=== PATIENT | female | born 1970 | race Two or more races ===

== ENCOUNTER 2024-03-25 21:44 | Emergency (ER) | payer OTHER, SELFPAY ==
[2024-03-25 21:44] VITALS: BMI 32.9
[2024-03-25 21:50] VITALS: BP 153/85; PULSE 99; RESP 18; TEMP 36.6; O2SAT 97
--- NOTE | 2024-03-25 22:08 | XR_ITS ---
Examination: CT brain head without contrast. 2-D sagittal coronal reconstructions Date and time of exam:March 25, 2024 1057 hrs. Indications: Onset headache today Comparison: May 28, 2023 CTDI: vol (mGy):48.50 DLP: (mGycm):932 Technique: Multiple CT axial sections of the brain have been obtained, 5 mm slice thickness. Contrast has not been administered. 2-D sagittal, coronal reconstructions have been obtained Low dose protocols were performed. One or more of the following dose reduction techniques were used; automated exposure control, adjustment of the mA and/or KV according to patient size, use of iterative reconstruction technique. Findings: No significant ventricular enlargement. Intra-axial or extra-axial hemorrhage density is not seen. No mass effect or midline shift Basal cisterns are not remarkable. Fourth ventricle is midline. Cranial vault intact. Impression: Negative for acute hemorrhage, mass effect or midline shift Advise clinical correlation and follow-up accordingly
--- NOTE | 2024-03-25 22:09 | EDNOTE_ITS ---
<Statement entered by Magdalena Davis MD - 03/26/24 22:04> As co-signing physician, I was present and available for consult prn. I concur with the plan and care as documented by the midlevel provider. ED Headache RME/HPI General Chief Complaint: Headache Stated Complaint: HEADACHE Time Seen by Provider: 03/25/24 21:59 Source: patient Arrival date/time: 03/25/24 21:44 53-year-old female past medical history of diabetes and migraines presents emergency department complaining of headache that is been ongoing since today. Patient denies any fever, chills, dizziness, vision changes, nausea vomiting, or any other associated symptom. Mode of arrival: ambulatory Limitations: no limitations Related Data Home Medications ?Medication ?Instructions ?Recorded ?Confirmed metformin 1,000 mg tablet 1,000 mg PO BID #0 tabs 05/03/14 12/23/22 (Glucophage) gabapentin 800 mg tablet 800 mg PO BID 07/09/21 12/23/22 hydroxyzine HCl 50 mg tablet 50 mg PO QHSPRN PRN Anxiety 07/09/21 12/23/22 dulaglutide 1.5 mg/0.5 mL 1.5 mg subcut QWEEK 12/22/22 12/23/22 subcutaneous pen injector (Trulicity) fluoxetine 20 mg capsule 20 mg PO DAILY 12/22/22 12/23/22 insulin degludec 100 unit/mL 30 unit subcut DAILY 12/22/22 12/22/22 subcutaneous solution (Tresiba U-100 Insulin) lisinopril 5 mg tablet 5 mg PO TID 12/22/22 12/23/22 albuterol 90 mcg/actuation aerosol 90 mcg inhalation QID 12/23/22 12/23/22 inhaler cetirizine 10 mg capsule 10 mg PO QDAY 12/23/22 12/23/22 insulin degludec 200 unit/mL (3 30 unit subcut QWEEK 12/23/22 12/23/22 mL) subcutaneous pen (Tresiba FlexTouch U-200 insulin) Previous Rx's ?Medication ?Instructions ?Recorded acetaminophen 500 mg capsule 500 mg PO Q6H PRN pain #30 caps 03/25/24 ibuprofen 600 mg tablet 600 mg PO Q8H PRN pain #20 tabs 03/25/24 Allergies Allergy/AdvReac Type Severity Reaction Status Date / Time sumatriptan Allergy Verified 03/25/24 21:47 Review of Systems Review of Systems Systems Reviewed: All systems reviewed, normal except as documented Constitutional Constitutional: Reports system reviewed and no additional complaints, except as documented, Denies body ache(s), Denies chills, Denies fever(s) and Reports headache(s) Eyes Eyes: Reports system reviewed and no additional complaints, except as documented and Denies change in vision ENT Ears, Nose, Mouth, and Throat: Reports system reviewed and no additional complaints, except as documented, Denies disequilibrium, Denies dizziness, Reports headache(s), Denies sore throat and Denies vertigo Cardiovascular Cardiovascular: Reports system reviewed and no additional complaints, except as documented, Denies chest pain and Denies dyspnea Respiratory Respiratory: Reports system reviewed and no additional complaints, except as documented, Denies chest congestion, Denies cough and Denies dyspnea Gastrointestinal Gastrointestinal: Reports system reviewed and no additional complaints, except as documented, Denies abdominal pain, Denies nausea and Denies vomiting Musculoskeletal Musculoskeletal: Reports system reviewed and no additional complaints, except as documented, Denies abnormal gait and Denies arthralgias Integumentary/Breasts Skin/Breast: Reports system reviewed and no additional complaints, except as documented, Denies erythema, Denies rash and Denies wounds Neurologic Neurologic: Reports system reviewed and no additional complaints, except as documented, Denies abnormal gait, Denies disequilibrium, Denies dizziness, Reports headache(s) and Denies vertigo Past Medical History Past Medical History NEUROLOGIC: Positive Neurological Disorders and Peripheral Neuropathy (feet); Negative Cerebrovascular Accident, Transient Ischemic Attacks (TIA), Dementia, Alzheimer's Disease, Parkinson's Disease, Brain Tumor, Meningitis, Seizures, Epilepsy, Multiple Sclerosis, Cerebral Palsy, Amyotrophic Lateral Sclerosis (ALS/Andreia Gehrig's), Guillain-Reading Syndrome, Spina Bifida, Paralysis, Campos's Palsy, Subdural Hematoma, Migraine, Head Trauma, Spinal Cord Injury or Traumatic Brain Injury CARDIAC: Positive Cardiac Disorders and Angina; Negative Myocardial Infarction, Cardiac Arrhythmia, Atrial Fibrillation, Heart Murmur, Coronary Artery Disease, Atherosclerotic Heart Disease, Peripheral Vascular Disease, Hypercholesterolemia, Aneurysm, Congestive Heart Failure, Congenital Heart Disease, Valvular Heart Disease, Rheumatic Fever, Cardiomyopathy, Edema, Pericarditis, Cellulitis, Deep Vein Thrombosis, Hypertension, Hypotension or Varicose Veins RESPIRATORY: Negative Chronic Obstructive Pulmonary Disease (COPD), Asthma, Bronchitis, Emphysema, Pneumonia, Pulmonary Fibrosis, Cystic Fibrosis, Tuberculosis, Pulmonary Embolism, Pulmonary Edema or Sleep Apnea GASTROINTESTINAL: Positive Gastrointestinal Disorders (abdominal hernia); Negative Hepatitis, Cirrhosis, Pancreatitis, Celiac Disease, Gall Bladder Disease, Gastrointestinal Bleed, Esophageal Varices, Campa's Esophagus, Colitis, Ulcerative Colitis, Diverticulitis, Diverticulosis, Ulcer, Colorectal Cancer, Irritable Bowel, Crohn's Disease, Obstructive Bowel, Hiatal Hernia, Hemorrhoids, Gastroesophageal Reflux Disease or Obesity GENITOURINARY: Negative Genitourinary Disorders, Renal Disease, Kidney Stones, Polycystic Kidney Disease, Neurogenic Bladder, Inguinal Hernia or Dialysis REPRODUCTIVE: Positive Previous Pregnancies (); Negative Breast Cancer, Endometriosis, Pelvic Inflammatory Disease or Uterine Prolapse MUSCULOSKELETAL: Positive Musculoskeletal Disorders and Arthritis (lower back.); Negative Muscular Dystrophy, Myasthenia Gravis, Marfan's Syndrome, Bone Cancer, Rheumatoid Arthritis, Osteoporosis, Degenerative Disk Disease, Gout, Scoliosis, Carpal Tunnel Syndrome, Fibromyalgia, Fractures, Degenerative Joint Disease, Osteomyelitis or Poliovirus ENT: Negative Cataracts, Glaucoma, Blind, Retinal Detachment, Macular Degeneration, Ear Infection, Deafness, Head Trauma or Eye Prosthesis ENDOCRINE: Positive Endocrine Disorders and Diabetes Mellitus Type 2; Negative Diabetes Mellitus Type 1, Hypoglycemia, Era's Syndrome, Dejuan's Disease, Hyperthyroidism, Hypothyroidism, Parathyroid Disease, Pituitary Disease, Systemic Lupus Erythematosus, Syndrome of Inappropriate Antidiuretic Hormone (SIADH), Adrenal Disease or Graves' Disease HEMATOLOGIC: Negative Blood Disorders, Anemia, Leukemia, Hemophilia, Thalassemia, Sickle Cell Disease or Clotting Problems PSYCHO/SOCIAL: Positive Depression and Anxiety; Negative Psychiatric Problems, Schizophrenia, Recreational Drug Use, Bipolar Disorder, Behavior Problems, Self-Mutilation, Attention Deficit Disorder, Attention Deficit Hyperactivity Disorder, Depression, Post Traumatic Stress Disorder or Eating Disorder OTHER HISTORY: Positive Chicken Pox and Mumps; Negative Hospitalization, Autoimmune Disease, Down Syndrome, Autism, Developmental Delay, Shingles, Falls, Blood Transfusions, Blood Transfusion Reaction, Anesthesia Reactions, Organ Transplant, Chemotherapy, Radiation Therapy, Hyperbaric Therapy, MRSA, VRSA, Vancomycin-Resistant Enterococci, Human Immunodeficiency Virus (HIV), Measles, Rubella (Micronesian Measles), Pertussis, Clostridium Difficile, Cancer, Breast Cancer, Cervical Cancer, Colorectal Cancer, Lung Cancer or Ovarian Cancer Family History FAMILY HISTORY: Positive Family Respiratory Disorders (dad has copd, mom had rare lung disease.); Negative Family Psychiatric Problems, Family Cardiac Disorders, Family Gastrointestinal Problems, Family Cancer, Family Surgery or Family Anesthesia Reaction Surgical History SURGICAL: Positive Abdominal Surgery and Section; Negative Cardiac Surgery, Open Heart Surgery, Coronary Artery Bypass Graft, Valve Replacement, Vascular Surgery, Coronary Stent, Cardiac Catheterization, Pacemaker, Angiogram, Auto Implanted Cardiovert Defib, Carotid Endarterectomy, Endocrine Surgery, Thyroidectomy, Ear Surgery, Tympanostomy Tube, Eye Surgery, Nose Surgery, Oral Surgery, Tonsillectomy, Adenoidectomy, Cochlear Implant, Corneal Transplant, Throat Surgery, Tracheostomy, Gastric Bypass Surgery, Gastrostomy, Bowel Surgery, Nephrectomy, Transurethral Resection, Joint Replacement, Amputation, Open Reduction Internal Fixation, Arthroscopy, Neurologic Surgery, Brain Shunt, Mastectomy, Lumpectomy, Hysterectomy, Tubal Ligation or Organ Transplant Social History SMOKING STATUS: Never smoker ED Exam General Limitations: Present no limitations General appearance: Present alert and in no apparent distress Head Head exam: Present atraumatic Eye Eye exam: Present normal appearance, PERRL and EOMI ENT ENT exam: Present normal exam, normal oropharynx and mucous membranes moist Neck Neck exam: Present normal inspection, full ROM and trachea midline Chest Chest inspection: Present normal inspection and symmetric chest wall rise Respiratory Respiratory exam: Present normal lung sounds bilaterally Cardiovascular Cardiovascular exam: Present regular rate, normal rhythm and normal heart sounds Abdominal Exam Abdominal exam: Present soft and normal bowel sounds Extremities Exam Extremities exam: Present normal inspection and full ROM Back Exam Back exam: Present normal inspection and full ROM Neurological Exam Neurological exam: Present alert, oriented X3 and CN II-XII intact Psychiatric Psychiatric exam: Present normal affect and normal mood Skin Skin exam: Present warm, dry, intact and normal color Course Quality Measures none Orders Category Date Time Status CT head/brain wo con Stat Exams 03/25/24 22:08 Completed Acetaminophen Tab [Tylenol ES Tab] Med 03/25/24 22:06 Discontinued 1,000 mg PO X1 ONE DiphenhydrAMINE [Benadryl] Med 03/25/24 22:06 Discontinued 25 mg PO X1 ONE Ketorolac Inj [Toradol Inj] Med 03/25/24 22:06 Discontinued 30 mg IM X1 ONE Ketorolac Inj [Toradol Inj] Med 03/25/24 23:16 Discontinued 30 mg IM X1 ONE Metoclopramide [Reglan] Med 03/25/24 22:06 Discontinued 10 mg PO X1 ONE Vital Signs Vital signs: Vital Signs Temperature 98 F 03/25/24 21:50 Pulse Rate 99 03/25/24 21:50 Respiratory Rate 18 03/25/24 21:50 Blood Pressure 153/85 H 03/25/24 21:50 Pulse Oximetry (%) 97 03/25/24 21:50 Oxygen Delivery Method Room Air 03/25/24 21:50 97% room air within normal limits Headache MDM Narrative MDM Narrative:: 53-year-old female past medical history of diabetes and migraines presents emergency department complaining of headache that is been ongoing since today. Patient denies any fever, chills, dizziness, vision changes, nausea vomiting, or any other associated symptom. Patient appears nontoxic and is hemodynamically stable. Patient is GCS of 15 ambulating independently with steady gait. CT was unremarkable for any acute process. Patient reported improvement in symptoms after pain medication. Patient discharged and instructed to follow-up with primary care provider and return to emergency department for any worsening symptoms or as needed. Patient data External records reviewed:: [facility] previous records Clinical information provided by:: patient Social determinants that could affect healthcare access:: none Patient has the following chronic illnesses:: See chart How is presenting disease/condition affected by chronic disease/condition?: exacerbated by Evaluation data The following diagnostics were reviewed and interpreted by me:: radiology exam(s) Lab and/or radiology exams considered but not ordered:: Ordered Interpretation Summary: Interpreted by me Medications / Prescriptions Medications or Prescriptions considered but not ordered:: Ordered Medication administrations:: Medication Administration History Discontinued Medications Acetaminophen (Acetaminophen 500 Mg Tablet) 1,000 mg PO X1 ONE Stop: 03/25/24 22:07 Last Admin: 03/25/24 22:17 Dose: 1,000 mg Documented By: Diphenhydramine HCl (Diphenhydramine 25 Mg Capsule) 25 mg PO X1 ONE Stop: 03/25/24 22:07 Last Admin: 03/25/24 22:17 Dose: 25 mg Documented By: Ketorolac Tromethamine (Ketorolac Inj 60 Mg/2 Ml Vial) 30 mg IM X1 ONE Stop: 03/25/24 22:07 Last Admin: 03/25/24 22:23 Dose: Not Given Documented By: Non-Admin Reason: Cancelled by Provider Ketorolac Tromethamine (Ketorolac Inj 60 Mg/2 Ml Vial) 30 mg IM X1 ONE Stop: 03/25/24 23:17 Last Admin: 03/25/24 23:34 Dose: 30 mg Documented By: CVL Metoclopramide HCl (Metoclopramide 5 Mg Tablet) 10 mg PO X1 ONE Stop: 03/25/24 22:07 Last Admin: 03/25/24 22:17 Dose: 10 mg Documented By: Given Consultations Consultation(s) initiated? (list below): No Diagnosis Differential diagnosis headache: migraine, tension headache, subarachnoid hemorrhage, headache, meningitis and sinusitis Most likely diagnosis given after review of the tests above:: Headache Admission Indicated Admission indicated?: not indicated Admission Request Was there a request for admission?: No Disposition Plan Disposition Plan: Discharge Discharge Attestation Discharge Attestation: The patient and all family members were given an opportunity to ask questions and understood the discharge instructions. Discharge instructions specifically effects, indications for sooner follow up or return to the emergency department, and the expected course of current diagnosis. Patient condition: Stable Discharge Plan Plan Patient Disposition: HOME (Self Care) Disposition Comment: Stable Prescriptions/Referrals Prescriptions/Med Rec: New ibuprofen 600 mg tablet 600 mg PO Q8H PRN (Reason: pain) Qty: 20 0RF acetaminophen 500 mg capsule 500 mg PO Q6H PRN (Reason: pain) Qty: 30 0RF No Action metformin [Glucophage] 1,000 MG tablet 1,000 mg PO BID Qty: 0 Hold Instructions: Resume on 12/25/22. hydroxyzine HCl 50 mg Tablet 50 mg PO QHSPRN PRN (Reason: Anxiety) gabapentin 800 mg tablet 800 mg PO BID Patient Comments: TAKE ONE TABLET BY MOUTH THREE TIMES DAILY fluoxetine 20 mg Capsule 20 mg PO DAILY insulin degludec [Tresiba U-100 Insulin] 100 unit/mL Solution 30 unit SUBCUT DAILY Trulicity 1.5 mg/0.5 mL Pen Injector 1.5 mg SUBCUT QWEEK lisinopril 5 mg Tablet 5 mg PO TID albuterol 90 mcg/actuation Aerosol 90 mcg INHALATION QID cetirizine 10 mg Capsule 10 mg PO QDAY insulin degludec [Tresiba FlexTouch U-200] 200 unit/mL (3 mL) Insulin Pen 30 unit SUBCUT QWEEK Referrals: Wolfe,Magdalena, [facility] [Primary Care Provider] - In 1 week Problem List Clinical Impression: Headache Patient/Caregiver Discharge Instructions Discharge Activity: activity as tolerated Education Materials: Self-Care for Headaches Additional Instructions: Take medication as prescribed. Drink plenty of water and stay hydrated. Follow-up with primary care provider in 24 to 48 hours. Return to emergency department for any worsening symptoms or as needed. Print Language: Vincentian Stand Alone Forms: [facility] Award Info., Patient Portal Info Letter ROBBY/GUERLINE Supervising Physician ROBBY/GUERLINE Supervising Physician: Dr. Davis
[2024-03-25] MEDS: DiphenhydrAMINE 25 MG CAPSULE PO (22:17)
[2024-03-25] MEDS: METOCLOPRAMIDE 5 MG TABLET 10 MG PO (22:17)
[2024-03-25] MEDS: ACETAMINOPHEN 500 MG TABLET 1000 MG PO (22:17)
[2024-03-25] MEDS: KETOROLAC INJ 60 MG/2 ML VIAL 30 MG IM (23:34)
[2024-03-25 23:36] VITALS: RESP 18
== END 2024-03-25 23:37 | disposition home or self-care (01) ==
PROVIDERS: Emergency Provider Emergency Medicine; PCP Nurse Practitioner Family
DX: R51.9 Headache, unspecified (principal)
CPT/HCPCS: 70450; 96372; 99284; J1885; A9270

== ENCOUNTER 2024-09-24 15:00 | Emergency (ER) | payer OTHER, SELFPAY ==
--- NOTE | 2024-09-24 15:32 | XR_ITS ---
Examination: CT brain head without contrast. 2-D sagittal coronal reconstructions Date and time of exam:September 24, 2024 1816 hours INDICATIONS: Syncopal episode with dizziness and vomiting today CTDI: vol (mGy):48.5 DLP: (mGycm):1007 Technique: Multiple CT axial sections of the brain have been obtained, 5 mm slice thickness. Contrast has not been administered. 2-D sagittal, coronal reconstructions have been obtained Low dose protocols were performed. One or more of the following dose reduction techniques were used; automated exposure control, adjustment of the mA and/or KV according to patient size, use of iterative reconstruction technique. Findings: No significant ventricular enlargement. Intra-axial or extra-axial hemorrhage density is not seen. No mass effect or midline shift Basal cisterns are not remarkable. Fourth ventricle is midline. Cranial vault intact. Impression: Negative for acute hemorrhage, mass effect or midline shift If symptoms persist, consider brain MRI follow up stroke protocol
--- NOTE | 2024-09-24 15:32 | EKG_ITS ---
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
--- NOTE | 2024-09-24 15:34 | PD.EDADULT ---
ED General RME/HPI General Stated complaint: SYNCOPE Time Seen by Provider: 09/24/24 15:31 Source: patient Arrival date/time: 09/24/24 15:00 54-year-old female with a history of type 2 diabetes presents to the emergency room with a chief complaint of dizziness, lightheadedness, and [place] Mode of arrival: ambulatory Limitations: no limitations Related Data Home Medications ?Medication ?Instructions ?Recorded ?Confirmed metformin 1,000 mg tablet 1,000 mg PO BID #0 tabs 05/03/14 12/23/22 (Glucophage) Held on 12/23/22. Instructions: Resume on 12/25/22. gabapentin 800 mg tablet 800 mg PO BID 07/09/21 12/23/22 hydroxyzine HCl 50 mg tablet 50 mg PO QHSPRN PRN Anxiety 07/09/21 12/23/22 dulaglutide 1.5 mg/0.5 mL 1.5 mg subcut QWEEK 12/22/22 12/23/22 subcutaneous pen injector (Trulicity) fluoxetine 20 mg capsule 20 mg PO DAILY 12/22/22 12/23/22 insulin degludec 100 unit/mL 30 unit subcut DAILY 12/22/22 12/22/22 subcutaneous solution (Tresiba U-100 Insulin) lisinopril 5 mg tablet 5 mg PO TID 12/22/22 12/23/22 albuterol 90 mcg/actuation aerosol 90 mcg inhalation QID 12/23/22 12/23/22 inhaler cetirizine 10 mg capsule 10 mg PO QDAY 12/23/22 12/23/22 insulin degludec 200 unit/mL (3 30 unit subcut QWEEK 12/23/22 12/23/22 mL) subcutaneous pen (Tresiba FlexTouch U-200 insulin) Previous Rx's ?Medication ?Instructions ?Recorded acetaminophen 500 mg capsule 500 mg PO Q6H PRN pain #30 caps 03/25/24 ibuprofen 600 mg tablet 600 mg PO Q8H PRN pain #20 tabs 03/25/24 Allergies Allergy/AdvReac Type Severity Reaction Status Date / Time sumatriptan Allergy Verified 03/25/24 21:47 Review of Systems Review of Systems Systems Reviewed: All systems reviewed, normal except as documented Constitutional Constitutional: Reports system reviewed and no additional complaints, except as documented, Denies fatigue, Denies fever(s), Denies headache(s) and Reports weakness Eyes Eyes: Reports system reviewed and no additional complaints, except as documented, Denies blurry vision and Denies change in vision ENT Ears, Nose, Mouth, and Throat: Reports system reviewed and no additional complaints, except as documented, Denies otalgia, Denies headache(s), Denies nasal congestion, Denies throat swelling and Reports vertigo Cardiovascular Cardiovascular: Reports system reviewed and no additional complaints, except as documented, Denies chest pain, Denies dyspnea and Denies dyspnea on exertion Respiratory Respiratory: Reports system reviewed and no additional complaints, except as documented, Denies chest congestion, Denies cough, Denies dyspnea, Denies dyspnea on exertion and Denies wheezing Gastrointestinal Gastrointestinal: Reports system reviewed and no additional complaints, except as documented, Denies abdominal pain, Denies cramping, Denies nausea and Denies vomiting Genitourinary Genitourinary: Reports system reviewed and no additional complaints, except as documented Musculoskeletal Musculoskeletal: Reports system reviewed and no additional complaints, except as documented and Denies back pain Integumentary/Breasts Skin/Breast: Reports system reviewed and no additional complaints, except as documented and Denies wounds Neurologic Neurologic: Reports system reviewed and no additional complaints, except as documented, Denies confusion, Denies headache(s), Reports lack of coordination, Reports vertigo and Reports weakness Psychiatric Psychiatric: Reports system reviewed and no additional complaints, except as documented, Denies anxiety, Denies confusion, Denies depression, Denies paranoia, Denies suicidal ideation and Denies tactile hallucinations Endocrine Endocrine: Reports system reviewed and no additional complaints, except as documented and Denies fatigue Hematologic/Lymphatic Hematologic/Lymphatic: Reports system reviewed and no additional complaints, except as documented and Denies lymphadenopathy Allergic/Immunologic Allergic/Immunologic: Reports system reviewed and no additional complaints, except as documented, Denies throat swelling, Denies urticaria and Denies wheezing ED Exam General Limitations: Present no limitations Course Orders Category Date Time Status EKG (ED ONLY) *Do not use* NOW Care 09/24/24 15:[address] head/brain wo con Stat Exams 09/24/24 15:32 Ordered EKG (ED Only) Stat Exams 09/24/24 15:32 Ordered B-Type Natriuretic Peptide Stat Lab 09/24/24 15:32 Ordered CBC Stat Lab 09/24/24 15:32 Ordered Comprehensive Metabolic Panel Stat Lab 09/24/24 15:32 Ordered Drug Screen,Urine Stat Lab 09/24/24 15:32 Ordered Magnesium Stat Lab 09/24/24 15:32 Ordered Partial Thromboplastin Time Stat Lab 09/24/24 15:32 Ordered Prothrombin Time with INR Stat Lab 09/24/24 15:32 Ordered Troponin I Stat Lab 09/24/24 15:32 Ordered Urinalysis Stat Lab 09/24/24 15:32 Ordered Meclizine HCl [Antivert] Med 09/24/24 15:32 Once 50 mg PO X1 ONE Sodium Chloride 0.9% 1000 ml [Ns] 1,000 ml Med 09/24/24 15:33 Ordered IV 999 mls/hr Discharge Plan Prescriptions/Referrals Prescriptions/Med Rec: No Action metformin [Glucophage] 1,000 MG tablet 1,000 mg PO BID Qty: 0 hydroxyzine HCl 50 mg Tablet 50 mg PO QHSPRN PRN (Reason: Anxiety) gabapentin 800 mg tablet 800 mg PO BID Patient Comments: TAKE ONE TABLET BY MOUTH THREE TIMES DAILY ibuprofen 600 mg tablet 600 mg PO Q8H PRN (Reason: pain) Qty: 20 0RF acetaminophen 500 mg capsule 500 mg PO Q6H PRN (Reason: pain) Qty: 30 0RF fluoxetine 20 mg Capsule 20 mg PO DAILY insulin degludec [Tresiba U-100 Insulin] 100 unit/mL Solution 30 unit SUBCUT DAILY Trulicity 1.5 mg/0.5 mL Pen Injector 1.5 mg SUBCUT QWEEK lisinopril 5 mg Tablet 5 mg PO TID albuterol 90 mcg/actuation Aerosol 90 mcg INHALATION QID cetirizine 10 mg Capsule 10 mg PO QDAY insulin degludec [Tresiba FlexTouch U-200] 200 unit/mL (3 mL) Insulin Pen 30 unit SUBCUT QWEEK Patient/Caregiver Discharge Instructions Print Language: Maori MDM Medication Administration(s) Medication Administration History Sodium Chloride (Ns) 1,000 mls @ 999 mls/hr IV .Q1H1M ONE Stop: 09/24/24 16:33 Meclizine HCl (Meclizine Hcl 25 Mg Tablet) 50 mg PO X1 ONE Stop: 09/24/24 15:33
[2024-09-24 15:41] VITALS: BMI 31.6
[2024-09-24 15:45] VITALS: BP 97/61; PULSE 111; RESP 16; TEMP 36.5; O2SAT 96
[2024-09-24] MEDS: MECLIZINE HCL 25 MG TABLET 50 MG PO (16:27)
[2024-09-24] MEDS: SODIUM CHLORIDE 0.9% 1000 ML 1,000 ML 999 ML IV (16:28)
[2024-09-24 16:34] VITALS: BP 125/75; PULSE 104; RESP 16; TEMP 36.4; O2SAT 96
[2024-09-24 16:41] LABS: Basophils # (Auto) 0.1 Thou/mm3 (0.0-0.2); Basophils % (Auto) 1 % (0-2.5); Eosinophils # (Auto) 0.2 Thou/mm3 (0.0-0.5); Eosinophils % (Auto) 2 % (0-10); Hematocrit 31.8 % (36.0-46.0); Hemoglobin 10.7 g/dL (12.0-16.0); Immature Granulocytes % (Auto) 0 % (0-0); Immature Granulocytes Auto 0.03 Thou/mm3 (0.00-0.00); Lymphocytes # (Auto) 1.8 Thou/mm3 (1.0-4.8); Lymphocytes % (Auto) 18 % (10-50); Mean Corpuscular HGB Conc 33.6 g/dl (31.0-37.0); Mean Corpuscular Hemoglobin 29.9 pg (25.0-35.0); Mean Corpuscular Volume 89 fL (80-100); Monocytes # (Auto) 0.4 Thou/mm3 (0.0-0.8); Monocytes % (Auto) 4 % (0-12); Neutrophils # (Auto) 7.6 Thou/mm3 (1.8-7.7); Neutrophils % (Auto) 76 % (37-80); Nucleated Red Blood Cell # 0.02 Thou/mm3 (0.00-0.00); Nucleated Red Blood Cell % 0 /100 WBC (0); Platelet Count 351 Thou/mm3 (140-440); Red Blood Count 3.58 Miln/mm3 (4.00-5.20)
[2024-09-24 16:47] LABS: INR 1.1 (0.9-1.3); Partial Thromboplastin Time 22.7 Seconds (22.0-36.0); Prothrombin Time 11.6 Seconds (9.0-12.2)
[2024-09-24 16:50] LABS: B-Type Natriuretic Peptide < 20 pg/mL (0-100)
[2024-09-24 16:51] LABS: Alanine Aminotransferase 27 U/L (10-49); Albumin, Serum 3.8 gm/dL (3.5-5.0); Albumin/Globulin Ratio 1.5 (1.2-2.2); Alkaline Phosphatase 60 U/L (46-116); Anion Gap 16 (7-16); Aspartate Amino Transferase 32 U/L (0-34); BUN/Creatinine Ratio 12 Ratio (12-20); Bilirubin,Total 0.4 mg/dL (0.3-1.2); Blood Urea Nitrogen 21 mg/dL (9-23); Calcium 8.9 mg/dL (8.3-10.6); Calcium (Corrected) 9.1 mg/dL (8.5-10.1); Carbon Dioxide 21.9 mMol/L (20.0-31.0); Chloride 105 mMol/L (98-107); Creatinine (Component) 1.7 mg/dL (0.6-1.3); Estimated Creatinine Clearance 37.6 mL/min (>60); Globulin 2.6 gm/dL (2.3-3.5); Glucose 290 mg/dL (74-106); Magnesium 1.1 mg/dL (1.6-2.6); Osmolality,Calculated 298 (275-295); Potassium 4.1 mMol/L (3.4-5.1); Sodium 143 mMol/L (136-145); Total Protein 6.4 gm/dL (5.7-8.2); Troponin I < 0.002 ng/mL (0.0-0.045); eGFR 36 See Note
[2024-09-24] MEDS: Magnesium Sulfate 1 gm Ivpb 1 GM/100 ML BAG IV (17:58)
--- NOTE | 2024-09-24 17:58 | PD.EDRME ---
Rapid Medical Screening Exam RME Arrival date/time: 09/24/24 15:00 54-year-old female with a history of type 2 diabetes presents to the emergency room with a chief complaint of dizziness, lightheadedness, and [place] I have greeted and performed a focused initial assessment of this patient. A comprehensive ED assessment and evaluation of the patient, analysis of all test results, and completion of the medical decision making process will be conducted by additional ED providers. Chief Complaint: Syncope / Near Syncope Time Seen by Provider: 09/24/24 15:31 Vital signs: Vital Signs Temperature 97.7 F 09/24/24 15:45 Pulse Rate 111 H 09/24/24 15:45 Respiratory Rate 16 09/24/24 15:45 Blood Pressure 97/61 09/24/24 15:45 Pulse Oximetry (%) 96 09/24/24 15:45 Oxygen Delivery Method Room Air 09/24/24 15:45 Vital signs reviewed by provider: Yes
[2024-09-24 18:10] LABS: Collection Type, Urine Clean Catch
[2024-09-24 18:40] VITALS: BP 136/87; RESP 16; TEMP 36.7; O2SAT 97
[2024-09-24 18:57] LABS: Bacteria,Urine Rare; Bilirubin,Urine Negative (Negative); Blood,Urine Negative (Negative); Clarity,Urine Clear (Clear/Hazy); Color,Urine Lt-Yellow (Lt Yel-Yel); Glucose, Urine 3+ (Negative); Hyaline Casts,Urine 1 /hpf (0-1); Ketones,Urine Negative (Negative); Leukocyte Esterase,Urine Negative (Negative); Nitrite,Urine Negative (Negative); Protein,Urine 1+ (Neg - Trace); RBC,Urine 3 /hpf (0-3); Specific Gravity,Urine 1.011 (1.001-1.035); Squamous Epithelial Cell,Urine 2 /hpf (0-5); Urobilinogen,Urine Negative mg/dL (0.0-1.0); WBC,Urine 3 /hpf (0-5)
[2024-09-24 19:34] VITALS: BP 141/89; PULSE 93; RESP 19; TEMP 36.8; O2SAT 96
[2024-09-24 19:39] LABS: Amphetamine/Methamp Scrn,U Negative (Negative); Barbiturate Screen,Urine Negative (Negative); Benzodiazepines Screen,Urine Negative (Negative); Benzoylecgonine Screen, Ur Negative (Negative); Fentanyl Screen,Urine Negative (Negative); Opiate Screen,Urine Negative (Negative); THC Screen,Urine Negative (Negative)
--- NOTE | 2024-09-24 20:11 | PD.EDSYNC ---
ED Syncope RME/HPI General Chief Complaint: Syncope / Near Syncope Stated Complaint: SYNCOPE Time Seen by Provider: 09/24/24 15:31 Source: patient and family Arrival date/time: 09/24/24 15:00 Mode of arrival: ambulatory Limitations: no limitations RME / HPI RME / HPI narrative: 09/24/24 15:00 54-year-old female with a history of type 2 diabetes presents to the emergency room with a chief complaint of dizziness, lightheadedness, and a [place] that [place] I have greeted and performed a focused initial assessment of this patient. A comprehensive ED assessment and evaluation of the patient, analysis of all test results, and completion of the medical decision making process will be conducted by additional ED providers. Related Data Home Medications ?Medication ?Instructions ?Recorded ?Confirmed metformin 1,000 mg tablet 1,000 mg PO BID #0 tabs 05/03/14 12/23/22 (Glucophage) Held on 12/23/22. Instructions: Resume on 12/25/22. gabapentin 800 mg tablet 800 mg PO BID 07/09/21 12/23/22 hydroxyzine HCl 50 mg tablet 50 mg PO QHSPRN PRN Anxiety 07/09/21 12/23/22 dulaglutide 1.5 mg/0.5 mL 1.5 mg subcut QWEEK 12/22/22 12/23/22 subcutaneous pen injector (Trulicity) fluoxetine 20 mg capsule 20 mg PO DAILY 12/22/22 12/23/22 insulin degludec 100 unit/mL 30 unit subcut DAILY 12/22/22 12/22/22 subcutaneous solution (Tresiba U-100 Insulin) lisinopril 5 mg tablet 5 mg PO TID 12/22/22 12/23/22 albuterol 90 mcg/actuation aerosol 90 mcg inhalation QID 12/23/22 12/23/22 inhaler cetirizine 10 mg capsule 10 mg PO QDAY 12/23/22 12/23/22 insulin degludec 200 unit/mL (3 30 unit subcut QWEEK 12/23/22 12/23/22 mL) subcutaneous pen (Tresiba FlexTouch U-200 insulin) Previous Rx's ?Medication ?Instructions ?Recorded acetaminophen 500 mg capsule 500 mg PO Q6H PRN pain #30 caps 03/25/24 ibuprofen 600 mg tablet 600 mg PO Q8H PRN pain #20 tabs 03/25/24 Allergies Allergy/AdvReac Type Severity Reaction Status Date / Time sumatriptan Allergy Verified 03/25/24 21:47 Review of Systems Constitutional Constitutional: Reports system reviewed and no additional complaints, except as documented Eyes Eyes: Reports system reviewed and no additional complaints, except as documented, Denies dry eyes, Denies exophthalmos and Reports floaters Cardiovascular Cardiovascular: Denies chest pain with activity and Denies claudication ED Exam General Limitations: Present no limitations General appearance: Present alert and in no apparent distress Head Head exam: Present atraumatic Eye Eye exam: Present normal appearance, PERRL and EOMI ENT ENT exam: Present normal exam, normal oropharynx and mucous membranes moist Neck Neck exam: Present normal inspection, full ROM and trachea midline Chest Chest inspection: Present normal inspection and symmetric chest wall rise Respiratory Respiratory exam: Present normal lung sounds bilaterally Cardiovascular Cardiovascular exam: Present regular rate, normal rhythm and normal heart sounds Abdominal Exam Abdominal exam: Present soft and normal bowel sounds Rectal Exam Rectal exam: Present deferred Extremities Exam Extremities exam: Present normal inspection and full ROM Back Exam Back exam: Present normal inspection and full ROM Neurological Exam Neurological exam: Present alert and oriented X3 Psychiatric Psychiatric exam: Present normal affect and normal mood Skin Skin exam: Present warm, dry, intact and normal color Course Course Course Narrative: Troponin as well as an EKG, CT of the head, BMP, CBC, CMP, drug screen, magnesium stat, PT TD, PT, troponin #1, magnesium sulfate 1 g IV, meclizine,. Awaiting troponin #2. Quality Measures none Orders Category Date Time Status EKG (ED ONLY) *Do not use* NOW Care 09/24/24 15:[address] head/brain wo con Stat Exams 09/24/24 15:32 Completed EKG (ED Only) Stat Exams 09/24/24 15:32 Draft B-Type Natriuretic Peptide Stat Lab 09/24/24 16:09 Completed CBC Stat Lab 09/24/24 16:09 Completed Comprehensive Metabolic Panel Stat Lab 09/24/24 16:09 Completed Drug Screen,Urine Stat Lab 09/24/24 18:01 Completed Magnesium Stat Lab 09/24/24 16:09 Completed Partial Thromboplastin Time Stat Lab 09/24/24 16:09 Completed Prothrombin Time with INR Stat Lab 09/24/24 16:09 Completed Troponin I Stat Lab 09/24/24 16:09 Completed Troponin I Stat Lab 09/24/24 20:03 Completed Urinalysis Stat Lab 09/24/24 18:01 Completed Magnesium Sulfate 1 gm Ivpb [Magnesium Sulfate Ivpb] Med 09/24/24 16:57 Discontinued 1 gm in 100 ml IV X1 Meclizine HCl [Antivert] Med 09/24/24 15:32 Discontinued 50 mg PO X1 ONE Sodium Chloride 0.9% 1000 ml [Ns] 1,000 ml Med 09/24/24 15:33 Discontinued IV 999 mls/hr Vital Signs Vital signs: Vital Signs Temperature 97.7 F 09/24/24 15:45 Pulse Rate 111 H 09/24/24 15:45 Respiratory Rate 16 09/24/24 15:45 Blood Pressure 97/61 09/24/24 15:45 Pulse Oximetry (%) 96 09/24/24 15:45 Oxygen Delivery Method Room Air 09/24/24 15:45 Pulse ox room air 96% Syncope MDM Narrative MDM Narrative:: Patient will be discharged in no apparent distress. She is to follow-up with primary care physician within a week sooner if worse. Patient data External records reviewed:: Other (specify) Clinical information provided by:: none Social determinants that could affect healthcare access:: none Patient has the following chronic illnesses:: Chronic fatigue syndrome How is presenting disease/condition affected by chronic disease/condition?: no chronic disease (Chronic fatigue syndrome) Evaluation data The following diagnostics were reviewed and interpreted by me:: lab results Lab and/or radiology exams considered but not ordered:: Lab results return negative for any acute processes taking place. Interpretation Summary: Lab results return negative for any acute processes taking place. Medications / Prescriptions Medications or Prescriptions considered but not ordered:: N/A Medication administrations:: Medication Administration History Discontinued Medications Sodium Chloride (Ns) 1,000 mls @ 999 mls/hr IV .Q1H1M ONE Stop: 09/24/24 16:33 Last Infusion: 09/24/24 17:29 Dose: Infused Documented By: Admin: 09/24/24 16:28 Dose: 999 mls/hr Documented By: EF Magnesium Sulfate/Dextrose (Magnesium Sulfate Ivpb) 1 gm in 100 mls @ 100 mls/hr IV X1 ONE Stop: 09/24/24 17:56 Last Infusion: 09/24/24 18:58 Dose: Infused Documented By: Admin: 09/24/24 17:58 Dose: 100 mls/hr Documented By: EF Meclizine HCl (Meclizine Hcl 25 Mg Tablet) 50 mg PO X1 ONE Stop: 09/24/24 15:33 Last Admin: 09/24/24 16:27 Dose: 50 mg Documented By: EF Done Consultations Consultation(s) initiated? (list below): No Diagnosis Syncope Differential Diagnosis: syncope due to orthostatic hypotension, vasovagal syncope, subarachnoid hemorrhage and pulmonary embolism Most likely diagnosis given after review of the tests above:: N/A Admission Indicated Admission indicated?: not indicated Admission Request Was there a request for admission?: No Disposition Plan Disposition Plan: Discharge Discharge Attestation Discharge Attestation: The patient and all family members were given an opportunity to ask questions and understood the discharge instructions. Discharge instructions specifically effects, indications for sooner follow up or return to the emergency department, and the expected course of current diagnosis. Patient condition: Stable Discharge Plan Plan Patient Disposition: HOME (Self Care) Discharge Disposition comment: Stable Prescriptions/Referrals Prescriptions/Med Rec: No Action metformin [Glucophage] 1,000 MG tablet 1,000 mg PO BID Qty: 0 hydroxyzine HCl 50 mg Tablet 50 mg PO QHSPRN PRN (Reason: Anxiety) gabapentin 800 mg tablet 800 mg PO BID Patient Comments: TAKE ONE TABLET BY MOUTH THREE TIMES DAILY ibuprofen 600 mg tablet 600 mg PO Q8H PRN (Reason: pain) Qty: 20 0RF acetaminophen 500 mg capsule 500 mg PO Q6H PRN (Reason: pain) Qty: 30 0RF fluoxetine 20 mg Capsule 20 mg PO DAILY insulin degludec [Tresiba U-100 Insulin] 100 unit/mL Solution 30 unit SUBCUT DAILY Trulicity 1.5 mg/0.5 mL Pen Injector 1.5 mg SUBCUT QWEEK lisinopril 5 mg Tablet 5 mg PO TID albuterol 90 mcg/actuation Aerosol 90 mcg INHALATION QID cetirizine 10 mg Capsule 10 mg PO QDAY insulin degludec [Tresiba FlexTouch U-200] 200 unit/mL (3 mL) Insulin Pen 30 unit SUBCUT QWEEK Problem List Clinical Impression: Episode of syncope Impression comment: Syncopal episode Patient/Caregiver Discharge Instructions Discharge Activity: activity as tolerated Education Materials: Causes of Syncope, Diagnosing Syncope, ED Pain, Acute, Uncertain Cause Additional Instructions: Por favor, consulte con augustin m?dico de cabecera en las pr?ximas 24 a 48 horas. Augustin angiotomograf?a computarizada de abdomen y pelvis fue negativa para cualquier hallazgo emmanuelle. Augustin radiograf?a de t?rax fue negativa para cualquier hallazgo emmanuelle. Ante cualquier evidencia de empeoramiento de los signos o s?ntomas, acuda inmediatamente a urgencias. Print Language: Nigerien PA/GUERLINE Supervising Physician PA/LOOP MACHINE OPERATOR Supervising Physician: Haim
[2024-09-24 21:12] LABS: Troponin I < 0.020 ng/mL (0.0-0.045)
[2024-09-24 22:09] VITALS: BP 157/91; PULSE 95; RESP 16; O2SAT 97
== END 2024-09-24 22:11 | disposition home or self-care (01) ==
PROVIDERS: Nurse Practitioner Family; Emergency Provider Emergency Medicine; PCP Family Medicine
DX: R55 Syncope and collapse (principal); E11.9 Type 2 diabetes mellitus without complications; R42 Dizziness and giddiness
CPT/HCPCS: 36415; 70450; 80053; 80307; 81001; 83735; 83880; 84484; 85025; 85610; 85730; 93005; 96361; 96365; 99284; J3475; J7030; A9270

== ENCOUNTER → 2025-01-18 | Outpatient (CLI) | payer OTHER, SELFPAY ==
--- NOTE | 2025-01-18 09:00 | XR_ITS ---
Examination: MRI brain without intravenous contrast. Date and time of exam: January 18 thousand 25, 0940 hours INDICATIONS: Headaches dizziness beginning 10 months ago COMPARISON: February 18, 2023 Technique: Multiple axial and sagittal images of the brain obtained. Siemens high-resolution 1.5 [place] short bore scanners utilized. Sagittal sections, T1-weighted, TR 500, TE 14, are performed. Axial sections proton-density and T2-weighted have been obtained. Inversion recovery axial images, TR 9, 260, TE 111, TI 2500. Diffusion weighted images, axial sections, TR 4800, TE 128, B value 1000 Axial sections, ADC map, TR 4800, TE 128 Findings: Enlargement of the sella turcica is not present. The optic chiasm and infundibular are not remarkable. Prepontine and interpeduncular cisterns are not enlarged. There is no localized enlargement of the medulla or everett. Fourth ventricle and cerebellar tonsils appear normal in position. No subacute area of hemorrhage density is seen. Mass in the cerebellopontine angle region is not evident. Globes symmetrical. Orbital musculature including medial lateral rectus muscles do not exhibit abnormality. Diffusion-weighted images demonstrate no focus of restricted diffusion. Increased white matter signal scattered foci increased signal in the white matter Mass effect upon the ventricular system is not identified. Impression: Scattered punctate foci increased signal in the white matter, demyelinating disease
== END | disposition home or self-care (01) ==
LOC: SMRI 08:50
PROVIDERS: PCP Nurse Practitioner Family; Referring Provider Psychiatry & Neurology Neurology; Visit Provider Psychiatry & Neurology Neurology
DX: G37.9 Demyelinating disease of central nervous system, unspecified (principal)
CPT/HCPCS: 70551

== ENCOUNTER 2025-02-05 20:22 | Emergency (ER) | payer OTHER, SELFPAY ==
[2025-02-05 20:24] VITALS: BMI 29.6
--- NOTE | 2025-02-05 20:33 | PC.NURSE ---
C COLLAR APPLIED IN TRIAGE
[2025-02-05 21:46] VITALS: BP 134/85; PULSE 102; RESP 18; TEMP 36.8; O2SAT 95
--- NOTE | 2025-02-05 21:52 | XR_ITS ---
Examination: CT cervical spine without contrast 2-D sagittal reconstructions 2-D coronal reconstructions 3-D reconstructions. Exam date and time: 2024 11:58 p.m. INDICATIONS: Patient fell off a ladder today with injury to the neck, neck pain CTDI:vol (mGy) 15 DLP: (mGycm) 289 Technique: Multiple 2 mm axial sections of the cervical spine have been obtained. The coronal and sagittal reconstructions have been obtained. 3-D reconstructions have been obtained. Low dose protocols were performed. One or more of the following dose reduction techniques were used; automated exposure control, adjustment of the mA and/or KV according to patient size, use of iterative reconstruction technique. Findings: Axial sections demonstrate intact base of the skull. C1 exhibit satisfactory relationship to the odontoid. No acute cervical vertebral body fracture seen. Alignment posterior spinous processes satisfactory. Impression: No acute cervical fracture.
--- NOTE | 2025-02-05 21:52 | XR_ITS ---
Examination: CT lumbar spine, without contrast. 2-D sagittal reconstructions. 2-D coronal reconstructions. 3-D reconstructions. Date and time of exam: February 05, 2025, 2359 hours INDICATIONS: Patient fell off a ladder with injury to the lower back today lower back pain CTDI: vol (mGy): 34.9 DLP: (mGycm): 958 Technique: Multiple 1.25 mm axial sections of the lumbar spine without intravenous contrast have been obtained. 2-D sagittal and coronal reconstructions have been obtained. 3-D reconstructions have been obtained. Low dose protocols were performed. One or more of the following dose reduction techniques were used; automated exposure control, adjustment of the mA and/or KV according to patient size, use of iterative reconstruction technique. Findings: Adequate alignment lumbar vertebral bodies. No lumbar vertebral body compression fracture Advanced disc narrowing L5-S1 No spondylolisthesis Lumbar pedicles, laminae, transverse and posterior spinous processes intact L5-S1 6 mm calcified central left paracentral subarticular disc bulge is displacing the left S1 nerve root L4-L5 3 mm central lumbar disc bulge More cephalad levels unremarkable IMPRESSION: No acute lumbar fracture L5-S1 6 mm calcified central left paracentral subarticular disc bulge displacing the left S1 nerve root L4-L5 3 mm central lumbar disc bulge
--- NOTE | 2025-02-05 21:52 | XR_ITS ---
Examination: CT brain head without contrast. 2-D sagittal coronal reconstructions Date and time of exam: February 05, 2025, 11:15 a.m. INDICATIONS: Patient fell off a ladder today with injury to the head, head pain CTDI: vol (mGy): 49.8 DLP: (mGycm): 994 Technique: Multiple CT axial sections of the brain have been obtained, 5 mm slice thickness. Contrast has not been administered. 2-D sagittal, coronal reconstructions have been obtained Low dose protocols were performed. One or more of the following dose reduction techniques were used; automated exposure control, adjustment of the mA and/or KV according to patient size, use of iterative reconstruction technique. Findings: No significant ventricular enlargement. Intra-axial or extra-axial hemorrhage density is not seen. No mass effect or midline shift Basal cisterns are not remarkable. Fourth ventricle is midline. Cranial vault intact. Impression: Negative for acute hemorrhage, mass effect or midline shift
--- NOTE | 2025-02-05 21:54 | PD.EDHEAD ---
ED Head Injury RME/HPI General Chief complaint: Head Injury Stated complaint: FALL OFF LADDER 3 FT HEAD INJRY TAILK BONE PAIN Time Seen by Provider: 02/05/25 21:05 Arrival date/time: 02/05/25 20:22 54F with history of POTS, DM and HTN presents to ED with head, neck, and tailbone pain after missing stool step and falling backward. Limitations: no limitations Related Data Home Medications ?Medication ?Instructions ?Recorded ?Confirmed metformin 1,000 mg tablet 1,000 mg PO BID #0 tabs 05/03/14 12/23/22 (Glucophage) Held on 12/23/22. Instructions: Resume on 12/25/22. gabapentin 800 mg tablet 800 mg PO BID 07/09/21 12/23/22 hydroxyzine HCl 50 mg tablet 50 mg PO QHSPRN PRN Anxiety 07/09/21 12/23/22 dulaglutide 1.5 mg/0.5 mL 1.5 mg subcut QWEEK 12/22/22 12/23/22 subcutaneous pen injector (Trulicity) fluoxetine 20 mg capsule 20 mg PO DAILY 12/22/22 12/23/22 insulin degludec 100 unit/mL 30 unit subcut DAILY 12/22/22 12/22/22 subcutaneous solution (Tresiba U-100 Insulin) lisinopril 5 mg tablet 5 mg PO TID 12/22/22 12/23/22 albuterol 90 mcg/actuation aerosol 90 mcg inhalation QID 12/23/22 12/23/22 inhaler cetirizine 10 mg capsule 10 mg PO QDAY 12/23/22 12/23/22 insulin degludec 200 unit/mL (3 30 unit subcut QWEEK 12/23/22 12/23/22 mL) subcutaneous pen (Tresiba FlexTouch U-200 insulin) Previous Rx's ?Medication ?Instructions ?Recorded acetaminophen 500 mg capsule 500 mg PO Q6H PRN pain #30 caps 03/25/24 ibuprofen 600 mg tablet 600 mg PO Q8H PRN pain #20 tabs 03/25/24 Allergies Allergy/AdvReac Type Severity Reaction Status Date / Time sumatriptan Allergy Verified 02/05/25 20:30 Review of Systems Review of Systems Systems Reviewed: All systems reviewed, normal except as documented Constitutional Constitutional: Reports as per HPI and Reports headache(s) ENT Ears, Nose, Mouth, and Throat: Reports headache(s) and Reports neck pain Musculoskeletal Musculoskeletal: Reports as per HPI, Reports back pain and Reports neck pain Neurologic Neurologic: Reports headache(s) Past Medical History Past Medical History NEUROLOGIC: Positive Neurological Disorders and Peripheral Neuropathy; Negative Cerebrovascular Accident, Transient Ischemic Attacks (TIA), Dementia, Alzheimer's Disease, Parkinson's Disease, Brain Tumor, Meningitis, Seizures, Epilepsy, Multiple Sclerosis, Cerebral Palsy, Amyotrophic Lateral Sclerosis (ALS/Andreia Gehrig's), Guillain-[place] Syndrome, Spina Bifida, Paralysis, Campos's Palsy, Subdural Hematoma, Migraine, Head Trauma, Spinal Cord Injury or Traumatic Brain Injury CARDIAC: Positive Cardiac Disorders and Angina; Negative Myocardial Infarction, Cardiac Arrhythmia, Atrial Fibrillation, Heart Murmur, Coronary Artery Disease, Atherosclerotic Heart Disease, Peripheral Vascular Disease, Hypercholesterolemia, Aneurysm, Congestive Heart Failure, Congenital Heart Disease, Valvular Heart Disease, Rheumatic Fever, Cardiomyopathy, Edema, Pericarditis, Cellulitis, Deep Vein Thrombosis, Hypertension, Hypotension or Varicose Veins RESPIRATORY: Negative Chronic Obstructive Pulmonary Disease (COPD), Asthma, Bronchitis, Emphysema, Pneumonia, Pulmonary Fibrosis, Cystic Fibrosis, Tuberculosis, Pulmonary Embolism, Pulmonary Edema or Sleep Apnea GASTROINTESTINAL: Positive Gastrointestinal Disorders; Negative Hepatitis, Cirrhosis, Pancreatitis, Celiac Disease, Gall Bladder Disease, Gastrointestinal Bleed, Esophageal Varices, Campa's Esophagus, Colitis, Ulcerative Colitis, Diverticulitis, Diverticulosis, Ulcer, Colorectal Cancer, Irritable Bowel, Crohn's Disease, Obstructive Bowel, Hiatal Hernia, Hemorrhoids, Gastroesophageal Reflux Disease or Obesity GENITOURINARY: Negative Genitourinary Disorders, Renal Disease, Kidney Stones, Polycystic Kidney Disease, Neurogenic Bladder, Inguinal Hernia or Dialysis REPRODUCTIVE: Positive Previous Pregnancies; Negative Breast Cancer, Endometriosis, Pelvic Inflammatory Disease or Uterine Prolapse MUSCULOSKELETAL: Positive Musculoskeletal Disorders, Arthritis and Rheumatoid Arthritis; Negative Muscular Dystrophy, Myasthenia Gravis, Marfan's Syndrome, Bone Cancer, Osteoporosis, Degenerative Disk Disease, Gout, Scoliosis, Carpal Tunnel Syndrome, Fibromyalgia, Fractures, Degenerative Joint Disease, Osteomyelitis or Poliovirus ENT: Negative Cataracts, Glaucoma, Blind, Retinal Detachment, Macular Degeneration, Ear Infection, Deafness, Head Trauma or Eye Prosthesis ENDOCRINE: Positive Endocrine Disorders and Diabetes Mellitus Type 2; Negative Diabetes Mellitus Type 1, Hypoglycemia, Era's Syndrome, [place]'s Disease, Hyperthyroidism, Hypothyroidism, Parathyroid Disease, Pituitary Disease, Systemic Lupus Erythematosus, Syndrome of Inappropriate Antidiuretic Hormone (SIADH), Adrenal Disease or Graves' Disease HEMATOLOGIC: Negative Blood Disorders, Anemia, Leukemia, Hemophilia, Thalassemia, Sickle Cell Disease or Clotting Problems PSYCHO/SOCIAL: Positive Depression and Anxiety; Negative Psychiatric Problems, Schizophrenia, Recreational Drug Use, Bipolar Disorder, Behavior Problems, Self-Mutilation, Attention Deficit Disorder, Attention Deficit Hyperactivity Disorder, Depression, Post Traumatic Stress Disorder or Eating Disorder OTHER HISTORY: Positive Chicken Pox and Mumps; Negative Hospitalization, Autoimmune Disease, Down Syndrome, Autism, Developmental Delay, Shingles, Falls, Blood Transfusions, Blood Transfusion Reaction, Anesthesia Reactions, Organ Transplant, Chemotherapy, Radiation Therapy, Hyperbaric Therapy, MRSA, VRSA, Vancomycin-Resistant Enterococci, Human Immunodeficiency Virus (HIV), Measles, Rubella (Uzbek Measles), Pertussis, Clostridium Difficile, Cancer, Breast Cancer, Cervical Cancer, Colorectal Cancer, Lung Cancer or Ovarian Cancer Family History FAMILY HISTORY: Positive Family Respiratory Disorders; Negative Family Psychiatric Problems, Family Cardiac Disorders, Family Gastrointestinal Problems, Family Cancer, Family Surgery or Family Anesthesia Reaction Surgical History SURGICAL: Positive Abdominal Surgery and Section; Negative Cardiac Surgery, Open Heart Surgery, Coronary Artery Bypass Graft, Valve Replacement, Vascular Surgery, Coronary Stent, Cardiac Catheterization, Pacemaker, Angiogram, Auto Implanted Cardiovert Defib, Carotid Endarterectomy, Endocrine Surgery, Thyroidectomy, Ear Surgery, Tympanostomy Tube, Eye Surgery, Nose Surgery, Oral Surgery, Tonsillectomy, Adenoidectomy, Cochlear Implant, Corneal Transplant, Throat Surgery, Tracheostomy, Gastric Bypass Surgery, Gastrostomy, Bowel Surgery, Nephrectomy, Transurethral Resection, Joint Replacement, Amputation, Open Reduction Internal Fixation, Arthroscopy, Neurologic Surgery, Brain Shunt, Mastectomy, Lumpectomy, Hysterectomy, Tubal Ligation or Organ Transplant Social History SMOKING STATUS: Never smoker ED Exam General Limitations: Present no limitations General appearance: Present alert and in no apparent distress Head Head exam: Present atraumatic Neck Neck exam: Present other (in C-collar) Chest Chest inspection: Present normal inspection and symmetric chest wall rise Back Exam Back exam: Present tenderness (tailbone) Neurological Exam Neurological exam: Present alert and oriented X3 Psychiatric Psychiatric exam: Present normal affect and normal mood Skin Skin exam: Present warm, dry, intact and normal color Course Quality Measures none Orders Category Date Time Status Blood glucose [Bedside Blood Glucose] NOW Care 02/06/25 00:34 Active Rigid cervical collar NOW Care 02/05/25 21:[address] cervical spine wo con Stat Exams 02/05/25 21:[address] head/brain wo con Stat Exams 02/05/25 21:[address] lumbar spine wo con Stat Exams 02/05/25 21:52 Taken CBC Stat Lab 02/06/25 00:49 Completed CMP [Comprehensive Metabolic Panel] Stat Lab 02/06/25 00:49 Completed HCG,Qualitative Serum Stat Lab 02/05/25 22:23 Completed Ondansetron Odt [Zofran Odt] Med 02/06/25 00:34 Discontinued 4 mg PO X1 ONE Vital Signs Vital signs: Vital Signs Temperature 98.2 F 02/05/25 21:46 Pulse Rate 102 H 02/05/25 21:46 Respiratory Rate 18 02/05/25 21:46 Blood Pressure 134/85 H 02/05/25 21:46 Pulse Oximetry (%) 95 02/05/25 21:46 Oxygen Delivery Method Room Air 02/05/25 21:46 O2 at 95% on RA and WNLs Head Injury MDM Narrative MDM Narrative:: 54F with history of POTS, DM and HTN presents to ED with head, neck, and tailbone pain after missing stool step and falling backward. Physical exam reveals hematoma on posterior scalp. 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 Some tailbone tenderness. Speech and WOB normal. Patient is afebrile, calm, and alert. Telerad CT unremarkable. CBC unremarkable. CMP unremarkable except for elevated BS, but normal anion-gap. Patient data External records reviewed:: [facility] previous records Clinical information provided by:: patient Social determinants that could affect healthcare access:: none Patient has the following chronic illnesses:: POTS, HTN and DM How is presenting disease/condition affected by chronic disease/condition?: uneffected by Evaluation data The following diagnostics were reviewed and interpreted by me:: lab results and radiology exam(s) Lab and/or radiology exams considered but not ordered:: ordered Interpretation Summary: above Medications / Prescriptions Medications or Prescriptions considered but not ordered:: ordered Medication administrations:: Medication Administration History Discontinued Medications Ondansetron HCl (Ondansetron Odt 4 Mg Tabrap) 4 mg PO X1 ONE; Protocol Stop: 02/06/25 00:35 Last Admin: 02/06/25 01:08 Dose: 4 mg Documented By: LYNNE above Consultations Consultation(s) initiated? (list below): No Diagnosis Differential diagnosis head injury: concussion without loss of consciousness, epidural hematoma, closed head injury, subarachnoid hematoma, postconcussion syndrome, subdural hematoma and other (tailbone contusion/fx, neck fx/whiplash/contusion, scalp hematoma) Most likely diagnosis given after review of the tests above:: CHI, contusion of sacrum, scalp hematoma Admission Indicated Admission indicated?: not indicated Admission Request Was there a request for admission?: No Disposition Plan Disposition Plan: Discharge Discharge Attestation Discharge Attestation: The patient and all family members were given an opportunity to ask questions and understood the discharge instructions. Discharge instructions specifically effects, indications for sooner follow up or return to the emergency department, and the expected course of current diagnosis. Patient condition: Stable Discharge Plan Plan Patient Disposition: HOME (Self Care) Discharge Disposition comment: Stable Prescriptions/Referrals Prescriptions/Med Rec: No Action metformin [Glucophage] 1,000 MG tablet 1,000 mg PO BID Qty: 0 hydroxyzine HCl 50 mg Tablet 50 mg PO QHSPRN PRN (Reason: Anxiety) gabapentin 800 mg tablet 800 mg PO BID Patient Comments: TAKE ONE TABLET BY MOUTH THREE TIMES DAILY ibuprofen 600 mg tablet 600 mg PO Q8H PRN (Reason: pain) Qty: 20 0RF acetaminophen 500 mg capsule 500 mg PO Q6H PRN (Reason: pain) Qty: 30 0RF fluoxetine 20 mg Capsule 20 mg PO DAILY insulin degludec [Tresiba U-100 Insulin] 100 unit/mL Solution 30 unit SUBCUT DAILY Trulicity 1.5 mg/0.5 mL Pen Injector 1.5 mg SUBCUT QWEEK lisinopril 5 mg Tablet 5 mg PO TID albuterol 90 mcg/actuation Aerosol 90 mcg INHALATION QID cetirizine 10 mg Capsule 10 mg PO QDAY insulin degludec [Tresiba FlexTouch U-200] 200 unit/mL (3 mL) Insulin Pen 30 unit SUBCUT QWEEK Referrals: Magdalena Wolfe FNP [Primary Care Provider] - In 1 week Problem List Clinical Impression: Closed head injury, Scalp hematoma, Contusion of sacrum Patient/Caregiver Discharge Instructions Education Materials: ED Coccyx or Sacrum Contusion, ED Head Injury (Adult) Additional Instructions: Please follow-up with PCP within 24-48 hours and return immediately if symptoms worsen. If problem persists, recommend outpatient PT and/or MRI follow-up. In the meantime, rest, use ice/heat, and/or compression. Print Language: Macanese Stand Alone Forms: Patient Portal Info Letter PA/CROCODILE FARMER Supervising Physician ROBBY/GUERLINE Supervising Physician: Dr. Porter
[2025-02-05 23:02] LABS: HCG,Qualitative Serum Negative
--- NOTE | 2025-02-06 00:49 | PRELIM_ITS ---
CT scan of the lumbar spine without intravenous contrast (axial sections with sagittal and coronal reformats) February 05, 2025 2359 hours Clinical History: Fall; pls include coccyx Comparison: MRI of September 19, 2020. Findings: There is no fracture or subluxation. The vertebral body height and intervertebral disc spaces are normal. The soft tissues are unremarkable. Chronic disc disease at L5-S1. Chronic mild posterior disc bulging at L2-L3, L3-L4, L4-L5, and L5-S1 without evidence of spinal canal stenosis or neuroforaminal narrowing. Impression: No evidence of fracture, subluxation or significant soft tissue injury. Report Electronically Signed By: Jerry Ferrell 02/06/2025 2:11:16 AM [EST]
--- NOTE | 2025-02-06 00:50 | PRELIM_ITS ---
CT scan of the cervical spine without intravenous contrast (axial sections with sagittal and coronal reformats) February 05, 2025 at 2356 hours Clinical History: Fall. Comparison: None available at the time of this report. Findings: There is no fracture or subluxation. The prevertebral soft tissues are unremarkable. Loss of the physiologic cervical lordosis. Impression: No evidence of fracture or subluxation. Report Electronically Signed By: Jerry Ferrell 02/06/2025 12:49:55 AM [EST]
--- NOTE | 2025-02-06 00:58 | PRELIM_ITS ---
CT scan of the head without intravenous contrast (axial sections with sagittal and coronal reformats) February 05, 2025 2356 hours Clinical History: Fall. Comparison: CT of July 09, 2021. Findings: There is no evidence of intracranial hemorrhage, mass effect or midline shift. There is mild volume loss. The calvarium is intact. The mastoid air cells and the visualized paranasal sinuses are clear. Left posterior subcutaneous scalp hematoma. Impression: No evidence of intracranial hemorrhage, midline shift or calvarial fracture Mild volume loss. Report Electronically Signed By: Jerry Ferrell 02/06/2025 1:02:37 AM [EST]
[2025-02-06] MEDS: ONDANSETRON ODT 4 MG TABRAP PO (01:08)
[2025-02-06 01:19] VITALS: BP 86/62; PULSE 83; RESP 16; TEMP 36.7; O2SAT 98
[2025-02-06 01:39] LABS: Basophils # (Auto) 0.1 Thou/mm3 (0.0-0.2); Basophils % (Auto) 1 % (0-2.5); Eosinophils # (Auto) 0.4 Thou/mm3 (0.0-0.5); Eosinophils % (Auto) 3 % (0-10); Hematocrit 34.9 % (36.0-46.0); Hemoglobin 11.4 g/dL (12.0-16.0); Immature Granulocytes Auto 0.08 Thou/mm3 (0.00-0.00); Lymphocytes # (Auto) 1.9 Thou/mm3 (1.0-4.8); Lymphocytes % (Auto) 16 % (10-50); Mean Corpuscular HGB Conc 32.7 g/dl (31.0-37.0); Mean Corpuscular Hemoglobin 30.1 pg (25.0-35.0); Mean Corpuscular Volume 92 fL (80-100); Monocytes # (Auto) 0.9 Thou/mm3 (0.0-0.8); Monocytes % (Auto) 7 % (0-12); Neutrophils # (Auto) 8.8 Thou/mm3 (1.8-7.7); Neutrophils % (Auto) 73 % (37-80); Nucleated Red Blood Cell # 0.00 Thou/mm3 (0.00-0.00); Nucleated Red Blood Cell % 0 /100 WBC (0); Platelet Count 372 Thou/mm3 (140-440); RDW Standard Deviation 41.7 fL (36.4-46.3); Red Blood Count 3.79 Miln/mm3 (4.00-5.20); White Blood Count 12.1 Thou/mm3 (3.6-11.0)
[2025-02-06 01:47] LABS: Alanine Aminotransferase 24 U/L (10-49); Albumin, Serum 4.5 gm/dL (3.5-5.0); Albumin/Globulin Ratio 1.6 (1.2-2.2); Alkaline Phosphatase 67 U/L (46-116); Anion Gap 10 (7-16); Aspartate Amino Transferase 32 U/L (0-34); BUN/Creatinine Ratio 14 Ratio (12-20); Bilirubin,Total 0.3 mg/dL (0.3-1.2); Blood Urea Nitrogen 15 mg/dL (9-23); Calcium 9.7 mg/dL (8.3-10.6); Calcium (Corrected) 9.7 mg/dL (8.5-10.1); Carbon Dioxide 25.5 mMol/L (20.0-31.0); Chloride 101 mMol/L (98-107); Creatinine (Component) 1.1 mg/dL (0.6-1.3); Estimated Creatinine Clearance 56.1 mL/min (>60); Globulin 2.8 gm/dL (2.3-3.5); Glucose 385 mg/dL (74-106); Osmolality,Calculated 288 (275-295); Potassium 4.7 mMol/L (3.4-5.1); Sodium 136 mMol/L (136-145); Total Protein 7.3 gm/dL (5.7-8.2); eGFR > 60 See Note
== END 2025-02-06 02:02 | disposition home or self-care (01) ==
PROVIDERS: Physician Assistant; Emergency Provider Emergency Medicine; PCP Family Medicine
DX: S00.03XA Contusion of scalp, initial encounter (principal); S30.0XXA Contusion of lower back and pelvis, initial encounter; E11.9 Type 2 diabetes mellitus without complications; I10 Essential (primary) hypertension; M53.3 Sacrococcygeal disorders, not elsewhere classified; W11.XXXA Fall on and from ladder, initial encounter; Z79.84 Long term (current) use of oral hypoglycemic drugs; Z90.10 Acquired absence of unspecified breast and nipple; Z90.710 Acquired absence of both cervix and uterus
CPT/HCPCS: 36415; 70450; 72125; 72131; 80053; 84703; 85025; 99283; Q0162